=== PATIENT | male | born 1975 | race Caucasian/White ===

== ENCOUNTER 2022-10-16 05:45 | Emergency (ER) | payer BC ==
--- NOTE | 2022-10-16 06:35 | ERPHSYRPT ---
- History of Present Illness Time Seen by Provider: 10/16/22 06:15 Source: patient Exam Limitations: no limitations Patient Subjective Stated Complaint: pt states that yesterday afternoon he was stepping up onto a curb and missed the curb and twisted his right foot. Triage Nursing Assessment: pt brought to room 6 via wheelchair and was able to stand and pivot to get onto cart. pt is alert and oriented times three, able to move all extremities (limited right foot due to pain), resp even and unlabored, and able to speak in complete sentences. pedal pulse palpable, sensation, color, cap refill all within normal limits. pt is able to wiggle his toes, no deformity or edema noted. Physician History: 46-year-old male presents emergency room with right foot pain after rolling his foot off a curb yesterday around 3 PM. Patient states that the pain is continued to worsen and now has pain with weightbearing. He denies any bruising or swelling. He does report an injury several years ago where he felt like he dislocated something in his foot, but never was evaluated for the injury. Patient denies any numbness or tingling down the foot. He reports his range of motion is within normal limits. Method of Injury: twisted Occurred: yesterday (3pm) Quality: intermittent, throbbing Severity of Pain-Max: moderate Severity of Pain-Current: moderate Lower Extremities Pain: foot: right (outside) Modifying Factors: Improves With: other (weightbearing worsens). Worsens With: movement Associated Symptoms: unable to bear weight, popping sensation Allergies/Adverse Reactions: No Known Drug Allergies Allergy (Verified 10/16/22 05:50) Home Medications: No Reportable Medications [No Reported Medications] 10/16/22 [History] Hx Tetanus, Diphtheria Vaccination/Date Given: No Hx Influenza Vaccination/Date Given: Yes Hx Pneumococcal Vaccination/Date Given: No Immunizations Up to Date: No Travel Risk - International Travel Have you traveled outside of the country in past 3 weeks: No - Coronavirus Screening Are you exhibiting any of the following symptoms?: No Close contact with a COVID-19 positive Pt in past 14-21 Days: No - Vaccine Status Have you recieved a Covid-19 vaccination: No - Review of Systems Constitutional: No Symptoms Eyes: No Symptoms Ears, Nose, & Throat: No Symptoms Respiratory: No Symptoms Cardiac: No Symptoms Abdominal/Gastrointestinal: No Symptoms Genitourinary Symptoms: No Symptoms Musculoskeletal: Fall, Injury, Joint Pain (outside foot) Skin: No Symptoms Neurological: No Symptoms Psychological: No Symptoms Endocrine: No Symptoms Hematologic/Lymphatic: No Symptoms Immunological/Allergic: No Symptoms All Other Systems: Reviewed and Negative - Past Medical History Pertinent Past Medical History: Yes Neurological History: No Pertinent History ENT History: No Pertinent History Cardiac History: No Pertinent History Respiratory History: No Pertinent History Endocrine Medical History: Other Musculoskeletal History: No Pertinent History GI Medical History: No Pertinent History History: No Pertinent History Psycho-Social History: No Pertinent History Male Reproductive Disorders: No Pertinent History Other Medical History: SEASONAL ALLERGIES, sleep apnea - Past Surgical History Past Surgical History: No Neuro Surgical History: No Pertinent History Cardiac: No Pertinent History Respiratory: No Pertinent History Gastrointestinal: No Pertinent History Genitourinary: No Pertinent History Musculoskeletal: No Pertinent History Male Surgical History: No Pertinent History - Social History Smoking Status: Never smoker Exposure to second hand smoke: No Drug Use: none Patient Lives Alone: Yes - Nursing Vital Signs Nursing Vital Signs: Initial Vital Signs Temperature 97.0 F 10/16/22 05:54 Pulse Rate 76 10/16/22 05:54 Respiratory Rate 20 10/16/22 05:54 Blood Pressure 137/83 10/16/22 05:54 O2 Sat by Pulse Oximetry 96 10/16/22 05:54 Pain Scale Pain Intensity 2 - Physical Exam General Appearance: no apparent distress Ankle Exam: right ankle: non-tender, normal inspection, normal range of motion, no evidence of injury Foot Exam: right foot: normal inspection, normal range of motion, bone tenderness (cuboid), ecchymosis (lateral foot), soft tissue tenderness (over peroneal tendon) Neuro/Tendon Exam: normal sensation, normal motor functions, normal tendon functions Mental Status Exam: alert, oriented x 3, cooperative Skin Exam: normal color, warm, dry SpO2 Interpretation: normal SpO2: 96 O2 Delivery: Room Air - Course Nursing assessment & vital signs reviewed: Yes - Radiology Exams Right Foot X-ray Interpretation: Interpreted by me, No Fracture Ordered Tests: Active Orders 24 hr Category Date Time Status FOOT (MINIMUM 3 VIEWS) Stat Exams 10/16/22 05:55 Taken - Progress Progress: unchanged Progress Note: Xray of right foot revealed no fracture or dislocation. Patient is tender over the cuboid and peroneal retinaculum. There is minimal bruising appreciated over the lateral aspect of the foot with minimal swelling. Discussed several different options with the patient and due to the amount of walking he has to do with work opted to try a podiatry shoe. After applying the shoe patient was still having pain with ambulation so crutches were given and advised that once he is able to bear weight without pain that he should progress out of the crutches. Courage the patient to follow-up with Ortho clinic early next week for further evaluation. 10/16/22 06:40 Counseled pt/family regarding: diagnosis, need for follow-up, rad results Medical Desision Making - Diagnostic Testing Diagnostic test were ordered, analyzed, and reviewed by me: Yes Radiological Interpretation: Interpreted by me - Risk of complications Low Risk: Low risk of morbidity from additional dx testing or treatment - Departure Departure Disposition: Home Clinical Impression: Right foot pain, Peroneal tendon injury Condition: Good Critical Care Time: No Referrals: ORTHO - ORI JOHN NP [NON-STAFF PHY W/O PRIVILEGES] - Follow up/PCP as directed Instructions: Foot Sprain (DC)
[2022-10-16 06:41] VITALS: BP 123/95; PULSE 66
[2022-10-16 06:44] VITALS: O2SAT 96
--- NOTE | 2022-10-16 07:04 | XRAY ---
Indication: Pain following injury. Comparison: None 3 nonweightbearing views right foot demonstrates tiny plantar heel spur. No other bony, articular, or soft tissue abnormalities.
== END 2022-10-16 06:47 | disposition home or self-care (01) ==
LOC: ED 05:45
DX: S86.301A Unspecified injury of muscle(s) and tendon(s) of peroneal muscle group at lower leg level, right leg, initial encounter (principal); X50.0XXA Overexertion from strenuous movement or load, initial encounter; M79.671 Pain in right foot; Z28.310 Unvaccinated for COVID-19
CPT/HCPCS: 73630; 99282